=== PATIENT | female | born 1970 | race Caucasian/White ===

== ENCOUNTER → 2017-06-02 | Outpatient (CLI) | payer MEDICARE, MEDICAID ==
[~2017-06-02] MED LIST: ACET-1757 PO; ALPR2TAB2 PO; ATOR40TA78 PO; BISA10SU2 PR; BUPR150T20 PO; CARI350T PO; CEFU1.5V IV; DIAZ10TA PO; DIPH25CA61 PO; ERGO400T3 PO; ESOM40CA PO; FENT1PAT9 EXT; FERR325T18 PO; FLUO15OI EXT; FLUO60TA PO; FLUT16SP2 NAS; GEMF600T3 PO; HYDR2TAB29 PO; IBUP-1223 PO; LISI-467 PO; LORA10CA PO; LORA10TA3 PO; MAGN400O7 PO; METH10TA6 PO; MULT-26 PO; NAPR500T4 PO; NORE0.353 PO; OMEP40CA6 PO; OXYC-307 PO; OXYC20TA2 PO; POLY17PO5 PO; PREG100C PO; PROM25TA10 PO; PROP10TA PO; PROP20TA PO; PROP50TA3 PO; QUET25TA5 PO; RIZA10TA20 PO; SENN-66 PO; TOPI100T8 PO; TRAZ100T15 PO; [UNRECOGNIZED DRUG - OTHER] TP
== END | disposition home or self-care (01) ==
LOC: CFH 14:41
PROVIDERS: ATTEND Nurse Practitioner
DX: M47.896 Other spondylosis, lumbar region (principal); R51 Headache; M47.892 Other spondylosis, cervical region; M25.812 Other specified joint disorders, left shoulder; M25.811 Other specified joint disorders, right shoulder; R10.9 Unspecified abdominal pain; M99.23 Subluxation stenosis of neural canal of lumbar region; Z90.5 Acquired absence of kidney; N28.89 Other specified disorders of kidney and ureter; Z85.528 Personal history of other malignant neoplasm of kidney; Z98.890 Other specified postprocedural states
CPT/HCPCS: 70450; 71046; 72050; 72110; 76770

== ENCOUNTER 2018-02-05 16:50 | Emergency (ER) | payer MEDICARE, MEDICAID ==
[~2018-02-05] VITALS: Ht 160 cm; Wt 123.9 kg
[~2018-02-05 16:50] MED LIST changes: -GEMF600T3 PO; +GEMF600T4 PO; +NAPR-685 PO; -NAPR500T4 PO; +TRAZ-137 PO; -TRAZ100T15 PO
[2018-02-05 17:04] VITALS: BP 147/86
== END 2018-02-05 19:08 | disposition home or self-care (01) ==
LOC: ED 19:00
DX: M79.661 Pain in right lower leg (principal); I10 Essential (primary) hypertension; R20.0 Anesthesia of skin; R53.1 Weakness
CPT/HCPCS: 71046; 99284

== ENCOUNTER → 2018-09-06 | Outpatient (CLI) | payer MEDICARE, MEDICAID ==
[~2018-09-06] MED LIST changes: -GEMF600T4 PO; +GEMF600T8 PO; +LORA-247 PO; -LORA10TA3 PO; -PROP10TA PO; +PROP10TA16 PO; +REGADENOSON 0.4 MG/5 ML SYRINGE ONE; -SENN-66 PO; +SENN1TAB59 PO
== END | disposition home or self-care (01) ==
LOC: CFH 12:40
PROVIDERS: ATTEND Internal Medicine Cardiovascular Disease
DX: I10 Essential (primary) hypertension (principal)
CPT/HCPCS: 78452; A9502; C9898; J2785

== ENCOUNTER → 2018-09-11 | Outpatient (CLI) | payer MEDICARE, MEDICAID ==
[~2018-09-11] MED LIST changes: -REGADENOSON 0.4 MG/5 ML SYRINGE ONE
== END | disposition home or self-care (01) ==
LOC: CFH 13:17
PROVIDERS: ATTEND Internal Medicine Cardiovascular Disease
DX: R07.89 Other chest pain (principal); I10 Essential (primary) hypertension
CPT/HCPCS: C8929; Q9957

== ENCOUNTER 2019-04-19 12:13 | Day surgery (SDC) | payer MEDICARE, MEDICAID ==
[~2019-04-19] VITALS: Ht 160 cm; Wt 132.8 kg
[~2019-04-19 12:13] MED LIST changes: -ACET-1757 PO; +ACET-2065 PO; -BISA10SU2 PR; +BISA10SU4 PR; +OMEP40CA42 PO; -OMEP40CA6 PO
[2019-04-19] MEDS ORDERED: LACTATED RINGERS 1,000 ML IV SCH (12:41)
[2019-04-19 12:57] VITALS: BP 142/84
[2019-04-19 13:57] LABS: ALANINE AMINOTRANSFERASE 25 U/L (12-78); ALBUMIN 3.6 g/dL (3.4-5.0); ANION GAP 6 mmol/L (5-15); CALCIUM 8.3 mg/dL (8.5-10.1); CHLORIDE 113 mmol/L (98-107)
[2019-04-19 14:02] LABS: ALKALINE PHOSPHATASE 85 U/L (45-117); BILIRUBIN,TOTAL 0.2 mg/dL (0.2-1.0); TOTAL PROTEIN 7.4 g/dL (6.4-8.2)
[2019-04-19] MEDS ORDERED: PROPOFOL 10 MG/ML, 20ML ONE (14:40)
[2019-04-19] MEDS ORDERED: DEXAMETHASONE 4 MG/ML, 1ML ONE (14:40)
[2019-04-19] MEDS ORDERED: ONDANSETRON 2MG/ML, 2ML ONE (14:40)
[2019-04-19] MEDS ORDERED: PROMETHAZINE 25 MG/ML, 1ML IV PRN (17:00)
[2019-04-19] MEDS ORDERED: hydrALAzine 20 MG/ML, 1ML IV PRN (17:00)
[2019-04-19] MEDS ORDERED: EPHEDRINE 50 MG/ML, 1ML IVPush PRN (17:00)
[2019-04-19] MEDS ORDERED: LABETALOL 5MG/ML, 20ML IV PRN (17:00)
[2019-04-19] MEDS ORDERED: MEPERIDINE/PF 25MG/ML,1ML IVPush PRN (17:00)
[2019-04-19] MEDS ORDERED: FENTANYL PF 100 MCG/2ML IV PRN (17:00)
[2019-04-19] MEDS ORDERED: HYDROmorphone 1 MG/ML, 1ML INJ IVPush PRN (17:00)
[2019-04-19] MEDS ORDERED: OXYcodone 5 MG/5 ML ORAL.SOL UDC PO PRN (17:00)
[2019-04-19] MEDS ORDERED: ACETAMINOPHEN 325 MG TABLET PO PRN (17:00)
[2019-04-19] MEDS ORDERED: ONDANSETRON 2MG/ML, 2ML IV PRN (17:00)
== END 2019-04-19 18:15 | disposition home or self-care (01) ==
LOC: OUT 12:13 → EDSTATUS 13:00 → OUT 18:15
PROVIDERS: ATTEND Nurse Practitioner
DX: M48.02 Spinal stenosis, cervical region (principal); M48.061 Spinal stenosis, lumbar region without neurogenic claudication; M48.07 Spinal stenosis, lumbosacral region; M25.78 Osteophyte, vertebrae; K21.9 Gastro-esophageal reflux disease without esophagitis; E11.9 Type 2 diabetes mellitus without complications; G43.909 Migraine, unspecified, not intractable, without status migrainosus; F32.9 Major depressive disorder, single episode, unspecified; M79.7 Fibromyalgia; Z79.1 Long term (current) use of non-steroidal anti-inflammatories (NSAID); Z79.891 Long term (current) use of opiate analgesic; Z79.84 Long term (current) use of oral hypoglycemic drugs; Z79.899 Other long term (current) drug therapy; Z88.8 Allergy status to other drugs, medicaments and biological substances; Z98.1 Arthrodesis status; Z90.5 Acquired absence of kidney
CPT/HCPCS: 36415; 72141; 72148; 80053; 84703; J7120; J1100; J2405; J2704

== ENCOUNTER → 2019-06-11 | Outpatient (CLI) | payer MEDICARE, MEDICAID ==
[~2019-06-11] MED LIST changes: -BUPR150T20 PO; +BUPR150T28 PO; -TRAZ-137 PO; +TRAZ-175 PO
== END | disposition home or self-care (01) ==
LOC: CFH 08:26
PROVIDERS: ATTEND Physician Assistant Surgical
DX: M48.02 Spinal stenosis, cervical region (principal)
CPT/HCPCS: 72125